=== PATIENT | male | born 1995 | race Caucasian/White ===

== ENCOUNTER 2023-06-22 15:10 | Emergency (ER) | payer MEDICAID ==
[~2023-06-22] VITALS: Ht 175.2 cm; Wt 63.5 kg
[2023-06-22] MEDS ORDERED: CIPRO500 MG PO (15:35)
[2023-06-22] MEDS ORDERED: Water, Sterile 10 ML VIAL ONE (16:13)
[2023-06-22 16:21] LABS: BILIRUBIN Negative (Negative); BLOOD Negative (Negative); CLARITY Clear (Clear); COLOR Yellow (Yellow); GLUCOSE Negative (Negative); KETONE Negative (Negative); LEUKO ESTERASE Negative (Negative); NITRITE Negative (Negative); SPECIFIC GRAVITY 1.015 (1.001-1.030)
[2023-06-22 16:35] LABS: BACTERIA TRACE; RBC 0-2 rbc/hpf (0-2); WBC 0-2 wbc/hpf (0-5)
== END 2023-06-22 16:59 | disposition home or self-care (01) ==
LOC: ED 15:10
PROVIDERS: Physician Assistant Medical
DX: N45.1 Epididymitis (principal); J45.909 Unspecified asthma, uncomplicated